=== PATIENT | female | born 1970 | race Caucasian/White ===

== ENCOUNTER 2018-03-12 18:57 | Observation (INO) ==
[2018-03-12] MEDS ORDERED: Aspirin 81 MG TAB.CHEW PO STA (19:04)
--- NOTE | 2018-03-12 19:07 | Emergency Department Note ---
Disposition Clinical Impression: Chest pain Qualifiers: Chest pain type: unspecified Qualified Code(s): R07.9 - Chest pain, unspecified Disposition: Admitted As Inpatient Condition: Fair Referrals: Barber Knowles, ZAHRA [Primary Care Provider] - Forms: ED Satisfaction Letter Time of Disposition: 19:07 Chest Pain HPI - General Chief Complaint: ED Chest Pain Stated Complaint: "chest pain" Time Seen by Provider: 03/12/18 18:59 Source: patient, EMS Mode of arrival: EMS Limitations: no limitations Vital Signs Reviewed: Yes Nursing Notes Reviewed: Yes - History of Present Illness HPI Narrative: 47-year-old female no previous cardiac history comes in complaining of chest pain. States she was seen at outside facility had a CTA of the chest and cardiac enzymes were negative she was sent out they did not have a stress test. Patient does have risk factors of hypertension, diabetes, family history. Patient has not had a stress test in several years. Pt complaint: chest pain Onset (ago): day(s) Duration: intermittent Onset: during rest Pain Location: substernal, left chest Severity: moderate Quality: tightness, aching, heaviness Pain Radiation: none Improves with: nothing Worsens with: nothing Treatments prior to arrival chest pain: none - Related Data Home Medications Medication Instructions Recorded Confirmed Allopurinol [Zyloprim 300 MG] 300 mg PO DAILY 06/01/15 03/04/18 Gabapentin [Neurontin] 300 mg PO TID 06/01/15 03/04/18 Levothyroxine [Synthroid] 12.5 mcg PO DAILY 06/01/15 03/04/18 ClonazePAM [Klonopin] 1 mg PO TID 07/27/15 03/04/18 FLUoxetine HCl [Prozac] 80 mg PO DAILY 07/27/15 03/04/18 Fluticasone Propionate Nasal 1 spray NS DAILY 07/27/15 03/04/18 [Flonase] Gemfibrozil [Lopid] 600 mg PO BID 07/27/15 03/04/18 Doxepin [Sinequan] 100 mg PO HS 06/04/16 03/04/18 Ergocalciferol (VITAMIN D2) 50,000 unit PO QWEEK 06/06/16 03/04/18 [Vitamin D2 (50,000 UNIT)] Ferrous Sulfate 325 mg PO DAILY 06/06/16 03/04/18 Insulin Glargine,Hum.rec.anlog 58 unit SQ HS 12/01/16 03/04/18 [Lantus Solostar] HumaLOG 1 unit SQ TID 06/01/17 03/04/18 Tradjenta 1 tab PO DAILY 06/01/17 03/04/18 Meclizine [Antivert] 25 mg PO BID 11/25/17 03/04/18 Pantoprazole Sodium [Protonix] 80 mg PO DAILY 11/25/17 03/04/18 Sulfamethoxazole/Trimeth DS 1 each PO BID 03/04/18 03/04/18 [Bactrim Ds] Allergies Allergy/AdvReac Type Severity Reaction Status Date / Time simvastatin Allergy Cramping Verified 03/12/18 17:26 of the Muscles All systems ED: reviewed and negative except as stated. Constitutional: Denies: fever, chills, weakness, weight change Eyes: Denies: eye pain, eye discharge, vision change ENT ED: Denies: ear pain, throat pain, dental pain, hearing loss, epistaxis, congestion, dysphagia Cardiovascular: Reports: chest pain. Denies: palpitations, dyspnea on exertion , edema, syncope Respiratory: Denies: cough, dyspnea, wheezes, hemoptysis, stridor Gastrointestinal: Denies: abdominal pain, nausea, vomiting, diarrhea, constipation, hematemesis, melena, hematochezia Genitourinary: Denies: dysuria, frequency, hematuria, discharge Musculoskeletal: Denies: back pain, neck pain, arthralgia, myalgia Integumentary: Denies: rash, abrasion, lesions Neurological: Denies: headache, weakness, numbness, paresthesias, confusion, abnormal gait, vertigo Psychiatric: Denies: anxiety, depression, suicidal thoughts, homicidal thoughts , auditory hallucinations, visual hallucinations Endocrine: Denies: fatigue Hematological/Lymphatic: Denies: easy bleeding, easy bruising Allergic/Immunologic: Denies: facial swelling, urticaria Chest Pain PMH - Past Medical History Medical history: Reports: arthritis, diabetes, GERD, hyperlipidemia, hypertension, kidney stones, thyroid disease, other Surgical history: Reports: cholecystectomy, orthopedic, other, other Psychiatric history: Reports: anxiety, depression, panic disorder ER REGISTRAR history: Reports: no ER REGISTRAR history - Social History Smoking Status: Never smoker Alcohol use: Reports: none Drug use: Reports: none Physical Exam - General Limitations: no limitations General appearance: alert, in no apparent distress - Head Head exam: atraumatic, normocephalic, normal inspection - Eye Eye exam: Present: normal appearance, PERRL, EOMI - ENT ENT exam: normal exam, normal oropharynx, mucous membranes moist - Neck Neck exam: Present: normal inspection, full ROM, trachea midline - Chest Chest inspection: Present: normal inspection, symmetric chest wall rise - Respiratory Respiratory exam: Present: normal lung sounds bilaterally - Cardiovascular Cardiovascular exam: Present: regular rate, normal rhythm, normal heart sounds - Abdominal Exam Abdominal exam: Present: soft, Non-Tender. Absent: tenderness, distention, guarding, rebound, rigidity - Extremities Exam Extremities exam: Present: normal inspection, full ROM. Absent: tenderness, pedal edema - Expanded Lower Extremity Exam Neurovascular/Tendon exam: Absent: motor deficit, sensory deficit, tendon deficit - Back Exam Back exam: Present: normal inspection, full ROM. Absent: tenderness - Neurological Exam Neurological exam: Present: alert, oriented X3 - Skin Skin exam: Present: warm, dry, intact, normal color Course - Reevaluation(s) Reevaluation #1: 47-year-old with multiple risk factors comes in complaining of chest pain. Workup in the ER is negative patient will be admitted for further evaluation and testing. Patient was actually admitted the outside facility but had no formal stress testing or cardiac catheter. He A of the chest was negative for PE. Time: 21:29 - Consultations Consultation #1: Discussed with , admit. Time: 21:30 Vital Signs Pulse Rate 87 03/12/18 19:03 Respiratory Rate 16 03/12/18 19:03 Blood Pressure 138/73 03/12/18 19:03 O2 Sat by Pulse Oximetry 97 03/12/18 19:03 Pulse Rate 90 03/12/18 20:59 Respiratory Rate 18 03/12/18 20:59 Blood Pressure 142/83 03/12/18 20:59 O2 Sat by Pulse Oximetry 96 03/12/18 20:59 Oxygen Delivery Oxygen Delivery Room Air Chest Pain - Lab Data Result diagrams: 03/12/18 19:12 Lab Results 03/12/18 03/12/18 03/12/18 Range/Units 19:02 19:12 19:12 WBC 9.2 (4.3-11.1) K/mcL RBC 4.17 (3.82-4.97) M/mcL Hgb 11.3 L (11.5-15.4) g/dL Hct 34.9 L (35.3-44.9) % MCV 83.7 (83.0-100.0) fL MCH 27.1 L (28.0-33.3) pg MCHC 32.4 (31.6-35.5) g/dL RDW 14.8 H (11.5-14.5) % Plt Count 287 (140-400) K/mcL MPV 9.3 L (9.4-12.4) fL Immature Gran % 0.4 (0-4) % Seg Neutrophils % 69.2 % Lymphocytes % 22.4 % Monocytes % 5.1 % Eosinophils % 2.6 % Basophils % 0.3 % Neutrophils # 6.3 (1.6-8.9) K/mcL Lymphocytes # 2.1 (0.6-4.6) K/mcL Monocytes # 0.5 (0.0-1.3) K/mcL Eosinophils # 0.2 (0.0-0.6) K/mcL Basophils # 0.0 (0.0-0.2) K/mcL PT 11.1 (9.4-12.1) Seconds INR 1.0 APTT 35.8 (26.0-36.0) Seconds Troponin I < 0.03 (< 0.04) ng/mL Specimen Rejected 03/12/18 Range/Units 19:12 WBC (4.3-11.1) K/mcL RBC (3.82-4.97) M/mcL Hgb (11.5-15.4) g/dL Hct (35.3-44.9) % MCV (83.0-100.0) fL MCH (28.0-33.3) pg MCHC (31.6-35.5) g/dL RDW (11.5-14.5) % Plt Count (140-400) K/mcL MPV (9.4-12.4) fL Immature Gran % (0-4) % Seg Neutrophils % % Lymphocytes % % Monocytes % % Eosinophils % % Basophils % % Neutrophils # (1.6-8.9) K/mcL Lymphocytes # (0.6-4.6) K/mcL Monocytes # (0.0-1.3) K/mcL Eosinophils # (0.0-0.6) K/mcL Basophils # (0.0-0.2) K/mcL PT (9.4-12.1) Seconds INR APTT (26.0-36.0) Seconds Troponin I (< 0.04) ng/mL Specimen Rejected Hemolyzed - EKG Data EKG attestation: Yes I reviewed and interpreted this EKG. EKG shows normal: sinus rhythm Rate: normal Rhythm: NSR Wells/QRS: IVCD Interpretation: no acute changes Heart Score - Score History: Moderately Suspicious EKG: Normal Age: 45-65 Risk Factors: Equal/Greater than 3 risk factor or history of atherosclerotic disease Troponin: Less than normal limit HEART Score Total: 4
[2018-03-12 20:18] LABS: Basophils % 0.3 %; Eosinophils # 0.2 K/mcL (0.0-0.6); Eosinophils % 2.6 %; Hematocrit 34.9 % (35.3-44.9); Hemoglobin 11.3 g/dL (11.5-15.4); Immature Granulocytes % 0.4 % (0-4); Lymphocytes # 2.1 K/mcL (0.6-4.6); Lymphocytes % 22.4 %; Mean Corpuscular HGB Conc 32.4 g/dL (31.6-35.5); Mean Corpuscular Hemoglobin 27.1 pg (28.0-33.3); Mean Corpuscular Volume 83.7 fL (83.0-100.0); Mean Platelet Volume 9.3 fL (9.4-12.4); Monocytes # 0.5 K/mcL (0.0-1.3); Monocytes % 5.1 %; Neutrophils # 6.3 K/mcL (1.6-8.9); Platelet Count 287 K/mcL (140-400); Red Blood Count 4.17 M/mcL (3.82-4.97); Red Cell Distribution Width 14.8 % (11.5-14.5); Segmented Neutrophils % 69.2 %
[2018-03-12 20:23] LABS: Prothrombin Time 11.1 Seconds (9.4-12.1)
[2018-03-12 20:26] LABS: Activated Partial Thrombo Time 35.8 Seconds (26.0-36.0)
[2018-03-12] MEDS ORDERED: Naloxone 0.4 MG/ML INJ IVP PRN (23:46)
--- NOTE | 2018-03-13 00:45 | Internal Med History&Physical ---
Date of Encounter: 03/13/18 Time of Encounter: 00:15 Internal Medicine - H&P: HPI Chief complaint: Chest pain Admitted From: Emergency Dept Plans for Post Hospital Care: Home History of present illness: Ms. Herron is a 47 year old female patient with a history of essential hypertension, diabetes, chronic kidney disease and kidney stones presented to the ER with complaints of chest pain. Symptoms have been going on for about a week. Reports pain as being sharp and stabbing in nature and radiating across her left chest and up to her shoulder and down her arm. Gets worse with activity. She was evaluated at [facility] and was discharged home after being observed. She did not have any stress test done then. She had a stress test done in 2014 which was negative. She reports shortness of breath when the pain is very severe. She has so far not obtain any significant relief in her chest pain although it is more bearable when she is lying down. No prior history of coronary artery disease. Past Med Surg Social Fam HX - Past Medical History Attestation: Yes The following information was validated with the patient. Source: patient Medical history: arthritis, diabetes, GERD, hyperlipidemia, hypertension, kidney stones, thyroid disease, other Additional medical history: stage 3 kidney disease Psychiatric history: anxiety, depression, panic disorder - Past Surgical History Surgical History: cholecystectomy, orthopedic, other, other Additional surgical history: right ankle - Social History Smoking Status: Never smoker Smokeless Tobacco Status: No Alcohol use: none Drug use: none - Family History Father Adopted: No Family Member Ethnicity: Non- Living Status: Age at : 62 Cause of : CA Hx Family Cardiac Disorders: Yes (CA) Hx Family Respiratory Disorders: Yes (COPD) Hx Family Cancer: No Hx Family GI Disorders: Yes Hx Family Genitourinary Disorders: No Hx Family Endocrine Disorder: Yes (DM) Hx Family Musculoskeletal Disorders: No Hx Family Neuromuscular Disorders: No Hx Family Neurologic Disorders: No Hx Family HEENT Disorders: No Hx Family Autoimmune Disorders: No Hx Family Reproductive Disorders: No Hx Family Psychosocial Disorders: No Hx Family Medical Disorders: No Mother Hx Family Cardiac Disorders: (HTN) Hx Family Respiratory Disorders: Yes (COPD) Hx Family Cancer: Yes (Cervical) Hx Family GI Disorders: No Hx Family Genitourinary Disorders: No Hx Family Endocrine Disorder: Yes (Thyroid) Hx Family Musculoskeletal Disorders: No Hx Family Neurologic Disorders: Yes (Dementia) Hx Family HEENT Disorders: No Hx Family Autoimmune Disorders: No Hx Family Reproductive Disorders: No Hx Family Psychosocial Disorders: No Hx Family Medical Disorders: No Internal Medicine - H&P: Meds Allopurinol [Zyloprim] 300 mg PO DAILY 03/12/18 [History] Doxepin HCl 100 mg PO HS 03/12/18 [History] Ergocalciferol (VITAMIN D2) [Vitamin D2] 50,000 unit PO QWEEK 03/12/18 [History] FLUoxetine HCl [Prozac] 80 mg PO DAILY 03/12/18 [History] Ferrous Sulfate [Iron] 325 mg PO DAILY 03/12/18 [History] Gabapentin [Neurontin] 300 mg PO TID 03/12/18 [History] Gemfibrozil [Lopid] 600 mg PO BID 03/12/18 [History] Insulin Glargine,Hum.rec.anlog [Lantus Solostar] 64 unit SQ HS 03/12/18 [History ] Insulin LISPRO [HumaLOG] 0 units SQ TID PRN 03/12/18 [History] Levothyroxine Sodium [Levoxyl] 12.5 mcg PO DAILY 03/12/18 [History] Linagliptin [Tradjenta] 5 mg PO DAILY 03/12/18 [History] Meclizine HCl [Verticalm] 25 mg PO BID 03/12/18 [History] Pantoprazole Sodium [Protonix] 80 mg PO DAILY 03/12/18 [History] clonazePAM [Klonopin] 1 mg PO TID 03/12/18 [History] 3 Allergy/AdvReac Type Severity Reaction Status Date / Time simvastatin Allergy Cramping Verified 03/12/18 17:26 of the Muscles All Systems PM: A 10-system review of systems was performed and is negative for pertinent findings except as documented above in the HPI. - Constitutional Constitutional: no chills, no fever(s), no night sweats - EENT Eyes: no change in vision, no discharge, no pain, no photophobia Ears: no ear discharge, no ear pain, no tinnitus Nose, mouth and throat: no dysphagia, no nasal discharge, no neck pain, no sore throat - Cardiovascular Cardiovascular ROS IM: chest pain, dyspnea, no diaphoresis, no lightheadedness, no palpitations, no syncope - Respiratory Respiratory: no cough, no dyspnea, no wheezing, no excessive phlegm production - Gastrointestinal Gastrointestinal: no abdominal pain, no diarrhea, no hematemesis, no hematochezia, no melena, no nausea, no vomiting - Genitourinary Genitourinary: no change in urinary stream, no dysuria, no flank pain, no hematuria - Musculoskeletal Musculoskeletal ROS IM: no numbness, no tingling - Integumentary Integumentary IM: no rash, no unusual bruising - Neurological Neurological ROS: no confusion, no convulsions, no focal weakness, no numbness, no tingling, no tremor(s) - Hematologic/Lymphatic Hematologic/Lymphatic: no easy bruising - Constitutional Vitals: Temp Pulse Resp BP Pulse Ox 98.3 F 80 16 132/88 97 03/12/18 18:59 03/12/18 21:59 03/12/18 23:52 03/12/18 23:52 03/12/18 21:59 General appearance: Present: cooperative, mild distress, A&O X 3, morbidly obese , pleasant - Respiratory Respiratory exam: Present: CTAB. Absent: accessory muscle use, rales, rhonchi, wheezes - Cardiovascular Cardiovascular exam: Present: RRR, +S1, +S2. Absent: diastolic murmur, gallop, rubs, systolic murmur - GI/Abdominal GI/Abdominal exam: Present: normal bowel sounds, soft, no peritoneal signs. Absent: distended, tenderness - Extremities Exam Extremities exam: Present: warm, radial pulses palpable and symmetrical. Absent : calf tenderness, cyanotic, pedal edema - Neurological Exam Neurological exam: Present: CN II-XII intact, oriented X3, no focal deficits. Absent: facial droop, speech deficit - Skin Skin exam: Present: dry, intact Internal Med - H&P Results - Labs CBC & Chem 7: 03/12/18 19:12 - EKG Data -: EKG Interpreted by Myself EKG shows normal: sinus rhythm - Impressions Impressions Chest X-Ray 03/12/18 19:02 IMPRESSION: No acute process. D/ / Jon Dodson MD / Jon Dodson MD Interpreting Provider: Jon Dodson MD - Assessment and plan (1) Chest pain Current Visit: Yes Status: Acute Assessment and plan: Chest pain getting worse with exertion. Will place patient in hospital for observation. Trend troponins. Telemetry. Monitor vital signs. If troponins are negative, will order stress test as patient has multiple risk factors and is at intermediate risk for coronary artery disease Qualifiers: Chest pain type: precordial pain Qualified Code(s): R07.9 - Chest pain, unspecified (2) CKD (chronic kidney disease) stage 3, GFR 30-59 ml/min Current Visit: Yes Status: Chronic Assessment and plan: Will check basic panel. Blood work done yesterday showed creatinine of 1.44. (3) Diabetes mellitus type 2 in obese Current Visit: Yes Status: Chronic Assessment and plan: Will place patient on sliding scale insulin. Monitor blood sugars. Diabetic diet (4) HLD (hyperlipidemia) Current Visit: Yes Status: Chronic Assessment and plan: Continue Lopid Qualifiers: Hyperlipidemia type: mixed hyperlipidemia Qualified Code(s): E78.2 - Mixed hyperlipidemia (5) HTN (hypertension) Current Visit: Yes Status: Chronic Assessment and plan: Continue home medications. Monitor blood pressure closely. Qualifiers: Hypertension type: essential hypertension Qualified Code(s): I10 - Essential (primary) hypertension (6) Hypothyroid Current Visit: Yes Status: Chronic Assessment and plan: Continue Synthroid Qualifiers: Hypothyroidism type: other Qualified Code(s): E03.8 - Other specified hypothyroidism - Time Spent With Patient Total time spent is greater than 50% in coordination of care (as documented) at patient's floor/unit and/or counseling patient:
[2018-03-13] MEDS ORDERED: *HR* Dextrose 50 % in Water (Syg) 50 ML SYRINGE IVP PRN (01:02)
[2018-03-13] MEDS ORDERED: D5% in Water 1,000 ML IVC PRN (01:02)
[2018-03-13] MEDS ORDERED: Dextrose Gel 15 GM/37.5 ML TUBE PO PRN ×2 (01:02)
[2018-03-13] MEDS: *HR* HYDROcodone/Acet 5/325 mg TABLET PO PRN ×2 (01:27→17:48)
[2018-03-13] MEDS: Insulin LISPRO 300 UNITS/3 ML VIAL SQ SCH ×4 (06:00→20:59)
[2018-03-13] MEDS: Levothyroxine 25 MCG TABLET PO SCH (06:02)
[2018-03-13] MEDS ORDERED: Regadenoson 0.4 MG/5 ML SYRINGE IVP ONE ×2 (06:44→11:04)
[2018-03-13] MEDS: Gabapentin 300 MG CAPSULE PO SCH ×3 (12:55→21:13)
[2018-03-13] MEDS: clonazePAM 1 MG TABLET PO SCH ×3 (12:55→21:13)
[2018-03-13] MEDS: FLUoxetine 20 MG CAPSULE PO SCH (12:55)
--- NOTE | 2018-03-13 15:34 | Internal Med Progress Note ---
Date of Encounter: 03/13/18 Time of Encounter: 15:32 - Assessment and plan (1) Chest pain Current Visit: Yes Status: Acute Assessment and plan: presented with chest pain that was worse with exertion. No known CAD. Serial troponins negative, EKG without acute ST changes. Has multiple cardiac risk factors including super morbid obesity, hypertension and diabetes. Echocardiogram and stress test pending (patient will be a 2 day stress; second part of stress test will be completed on Thursday03/13/18). Cont ASA and monitor on telemetry. Qualifiers: Chest pain type: precordial pain Qualified Code(s): R07.9 - Chest pain, unspecified (2) Diabetes mellitus type 2 in obese Current Visit: Yes Status: Chronic Assessment and plan: per hx. holding home diabetes medication regimen. Continue SSI. Monitor blood sugar and titrate PRN. Hgb A1c pending (3) HLD (hyperlipidemia) Current Visit: Yes Status: Chronic Assessment and plan: per hx. LDL 123. Cont home lopid. Lifestyle and dietary modifications encouraged Qualifiers: Hyperlipidemia type: mixed hyperlipidemia Qualified Code(s): E78.2 - Mixed hyperlipidemia (4) HTN (hypertension) Current Visit: Yes Status: Chronic Assessment and plan: per hx. Cont home BP medication. Monitor BP and titrate PRN. BP controlled on review Qualifiers: Hypertension type: essential hypertension Qualified Code(s): I10 - Essential (primary) hypertension (5) Hypothyroid Current Visit: Yes Status: Chronic Assessment and plan: per hx. Cont home synthyroid Qualifiers: Hypothyroidism type: other Qualified Code(s): E03.8 - Other specified hypothyroidism (6) CKD (chronic kidney disease) stage 3, GFR 30-59 ml/min Current Visit: Yes Status: Chronic Assessment and plan: per hx. Monitor BMP (7) DVT prophylaxis Current Visit: Yes Status: Acute Assessment and plan: heparin - Time Spent With Patient Total time spent is greater than 50% in coordination of care (as documented) at patient's floor/unit and/or counseling patient: - Subjective Interval history: Seen and examined at bedside. Patient is new to me, information obtained from chart review and patient report. Says she feels overall better but she still having intermittent chest pain that radiates to her left shoulder and down her left arm. Also reports some shortness of breath. No cough, no fever or chills. - Constitutional Vitals: Temp Pulse Resp BP Pulse Ox 98.1 F 94 16 138/82 95 03/13/18 13:01 03/13/18 13:01 03/13/18 13:01 03/13/18 13:01 03/13/18 13:01 General appearance: Present: cooperative, A&O X 3, morbidly obese, pleasant - Head Head exam: Present: atraumatic, normocephalic - Eye Eye exam: Present: PERRL, conjuntiva pink, sclera anicteric Pupils: Present: PERRL - Neck Neck exam general surgery: Present: supple, trachea midline. Absent: lymphadenopathy - Respiratory Respiratory exam: Present: CTAB. Absent: accessory muscle use, rales, rhonchi, wheezes - Cardiovascular Cardiovascular exam: Present: RRR, +S1, +S2. Absent: diastolic murmur, gallop, rubs, systolic murmur - GI/Abdominal GI/Abdominal exam: Present: normal bowel sounds, soft, no peritoneal signs. Absent: distended, tenderness - Extremities Exam Extremities exam: Present: warm, radial pulses palpable and symmetrical. Absent : calf tenderness, cyanotic, pedal edema - Neurological Exam Neurological exam: Present: CN II-XII intact, oriented X3, no focal deficits. Absent: pronater drift, facial droop, speech deficit - Skin Skin exam: Present: dry, intact, rash (Psoriatic skin plaques) Internal Medicine: Result - Labs CBC & Chem 7: 03/12/18 19:12 Labs: Cardiac Enzymes 03/13/18 03/13/18 Range/Units 00:45 06:14 Troponin I < 0.03 < 0.03 (< 0.04) ng/mL - ABG Interpretation ABG results: PT/INR, D-dimer PT 11.1 Seconds (9.4-12.1) 03/12/18 19:02 Consult Discharge Plan - Plan Referrals: Barber Knowles, [employer] MECH[employer]IC [Primary Care Provider] - (Unable to make follow up appointment due to office being closed. Please call office thursday to schedule appointment. )
[2018-03-13] MEDS: Aspirin 81 MG TAB.CHEW PO SCH (17:46)
[2018-03-13] MEDS: Nitroglycerin 0.4 MG TAB.SUBL SL PRN ×2 (20:43→20:58)
[2018-03-13] MEDS ORDERED: Ketorolac 30 MG/ML VIAL IVP ONE (21:12)
[2018-03-13] MEDS: Sulfamethoxazole/Trimeth DS 1 EACH TABLET PO SCH (21:49)
[2018-03-14] MEDS: Levothyroxine 25 MCG TABLET PO SCH (05:16)
[2018-03-14 06:13] LABS: Calcium 8.8 mg/dL (8.6-10.3); Potassium 4.4 mEq/L (3.5-5.1)
[2018-03-14] MEDS: FLUoxetine 20 MG CAPSULE PO SCH (09:15)
[2018-03-14] MEDS: Gabapentin 300 MG CAPSULE PO SCH ×3 (09:15→20:53)
[2018-03-14] MEDS: *HR* HYDROcodone/Acet 5/325 mg TABLET PO PRN (09:15)
[2018-03-14] MEDS: Aspirin 81 MG TAB.CHEW PO SCH (09:16)
[2018-03-14] MEDS: Insulin LISPRO 300 UNITS/3 ML VIAL SQ SCH ×4 (09:16→20:52)
[2018-03-14] MEDS: Sulfamethoxazole/Trimeth DS 1 EACH TABLET PO SCH ×2 (09:16→20:53)
[2018-03-14] MEDS: clonazePAM 1 MG TABLET PO SCH ×3 (09:16→20:53)
[2018-03-14 09:18] LABS: Estimated Average Glucose 237 mg/dl; Hemoglobin A1C 9.9 %
--- NOTE | 2018-03-14 11:26 | Internal Med Progress Note ---
Date of Encounter: 03/14/18 Time of Encounter: 11:39 - Assessment and plan (1) Chest pain Current Visit: Yes Status: Acute Assessment and plan: presented with chest pain that was worse with exertion. No known CAD. Serial troponins negative, EKG without acute ST changes. Has multiple cardiac risk factors including super morbid obesity, hypertension and diabetes. Echocardiogram and stress test pending (2 day stress; second part of stress test will be completed on Thursday03/13/18). Cont ASA and monitor on telemetry. Qualifiers: Chest pain type: precordial pain Qualified Code(s): R07.9 - Chest pain, unspecified (2) Diabetes mellitus type 2 in obese Current Visit: Yes Status: Chronic Assessment and plan: per hx. Uncontrolled; Hgb A1c 9.9%. Holding home diabetes medication regimen. Continue SSI. Monitor blood sugar and titrate PRN. (3) HLD (hyperlipidemia) Current Visit: Yes Status: Chronic Assessment and plan: per hx. LDL 123. Cont home lopid. Lifestyle and dietary modifications encouraged Qualifiers: Hyperlipidemia type: mixed hyperlipidemia Qualified Code(s): E78.2 - Mixed hyperlipidemia (4) HTN (hypertension) Current Visit: Yes Status: Chronic Assessment and plan: per hx. Cont home BP medication. Monitor BP and titrate PRN. BP controlled on review Qualifiers: Hypertension type: essential hypertension Qualified Code(s): I10 - Essential (primary) hypertension (5) Hypothyroid Current Visit: Yes Status: Chronic Assessment and plan: per hx. Cont home synthyroid Qualifiers: Hypothyroidism type: other Qualified Code(s): E03.8 - Other specified hypothyroidism (6) CKD (chronic kidney disease) stage 3, GFR 30-59 ml/min Current Visit: Yes Status: Chronic Assessment and plan: per hx. Monitor BMP (7) DVT prophylaxis Current Visit: Yes Status: Acute Assessment and plan: heparin - Time Spent With Patient Total time spent is greater than 50% in coordination of care (as documented) at patient's floor/unit and/or counseling patient: - Subjective Interval history: Seen and examined at bedside. Seen and examined at bedside. Uneventful night. No changes in exam to report. Says she still having intermittent chest pain and shortness of breath that is worse with exertion. No active chest pain on my exam. - Constitutional Vitals: Temp Pulse Resp BP Pulse Ox 98.2 F 99 14 130/71 96 03/14/18 11:03 03/14/18 11:03 03/14/18 11:03 03/14/18 11:03 03/14/18 11:03 General appearance: Present: cooperative, A&O X 3, morbidly obese, pleasant - Head Head exam: Present: atraumatic, normocephalic - Eye Eye exam: Present: PERRL, conjuntiva pink, sclera anicteric Pupils: Present: PERRL - Neck Neck exam general surgery: Present: supple, trachea midline. Absent: lymphadenopathy - Respiratory Respiratory exam: Present: CTAB. Absent: accessory muscle use, rales, rhonchi, wheezes - Cardiovascular Cardiovascular exam: Present: RRR, +S1, +S2. Absent: diastolic murmur, gallop, rubs, systolic murmur - GI/Abdominal GI/Abdominal exam: Present: normal bowel sounds, soft, no peritoneal signs. Absent: distended, tenderness - Extremities Exam Extremities exam: Present: warm, radial pulses palpable and symmetrical. Absent : calf tenderness, cyanotic, pedal edema - Neurological Exam Neurological exam: Present: CN II-XII intact, oriented X3, no focal deficits. Absent: pronater drift, facial droop, speech deficit - Skin Skin exam: Present: dry, intact Internal Medicine: Result - Labs CBC & Chem 7: 03/12/18 19:12 03/14/18 04:55 Labs: BMP 03/14/18 04:55 Sodium 134 L Potassium 4.4 Chloride 102 Carbon Dioxide 24 BUN 18 Creatinine 1.21 H Glucose 230 H Calcium 8.8 - ABG Interpretation ABG results: PT/INR, D-dimer PT 11.1 Seconds (9.4-12.1) 03/12/18 19:02 Consult Discharge Plan - Plan Referrals: Barber Knowles, [employer]OLOGIST [Primary Care Provider] - (Unable to make follow up appointment due to office being closed. Please call office thursday to schedule appointment. )
[2018-03-14] MEDS: *HR* Heparin 5,000 UNIT/ML VIAL SQ SCH ×2 (14:11→20:53)
[2018-03-15] MEDS: *HR* Heparin 5,000 UNIT/ML VIAL SQ SCH (05:26)
[2018-03-15] MEDS: Levothyroxine 25 MCG TABLET PO SCH (05:26)
[2018-03-15 06:38] LABS: Hematocrit 36.2 % (35.3-44.9); Hemoglobin 11.3 g/dL (11.5-15.4); Mean Corpuscular HGB Conc 31.2 g/dL (31.6-35.5); Mean Corpuscular Hemoglobin 25.8 pg (28.0-33.3); Mean Corpuscular Volume 82.6 fL (83.0-100.0); Mean Platelet Volume 9.2 fL (9.4-12.4); Platelet Count 295 K/mcL (140-400); Red Blood Count 4.38 M/mcL (3.82-4.97); Red Cell Distribution Width 14.7 % (11.5-14.5)
[2018-03-15 07:10] LABS: Calcium 9.3 mg/dL (8.6-10.3); Potassium 4.3 mEq/L (3.5-5.1)
[2018-03-15] MEDS: Sulfamethoxazole/Trimeth DS 1 EACH TABLET PO SCH (09:32)
[2018-03-15] MEDS: Gabapentin 300 MG CAPSULE PO SCH (09:32)
[2018-03-15] MEDS: clonazePAM 1 MG TABLET PO SCH (09:32)
[2018-03-15] MEDS: Aspirin 81 MG TAB.CHEW PO SCH (09:32)
[2018-03-15] MEDS: FLUoxetine 20 MG CAPSULE PO SCH (09:32)
[2018-03-15] MEDS: Insulin LISPRO 300 UNITS/3 ML VIAL SQ SCH ×2 (09:35→12:47)
[2018-03-15] MEDS ORDERED: 0.9 % Sodium Chloride 1,000 ML IVC SCH (10:15)
[2018-03-15 11:33] VITALS: BP 133/74
--- NOTE | 2018-03-15 13:30 | Discharge Summary ---
- NOTES TO OUTPATIENT PROVIDER Notes to Outpatient Provider: Recommend follow-up within one week Orders not resulted at time of discharge: Pending orders 03/13/18 01:01 NM pj perf SPECT multi [NM] Routine Date of Encounter: 03/15/18 Time of Encounter: 13:26 - Discharge Diagnosis (1) Chest pain Priority: Primary Status: Acute Assessment and Plan: presented with chest pain that was worse with exertion. No known CAD. Serial troponins negative, EKG without acute ST changes. Has multiple cardiac risk factors including super morbid obesity, hypertension and diabetes. TTE with preserved EF, mild diastolic dysfunction, no significant valvular or wall motion abnormalities. Stress test negative for ischemia or infarct. No further cardiac workup indicated at this time. Advised on aggressive risk factor modification. Continue ASA Qualifiers: Chest pain type: precordial pain Qualified Code(s): R07.9 - Chest pain, unspecified (2) Diabetes mellitus type 2 in obese Priority: Primary Status: Chronic Assessment and Plan: per hx. Uncontrolled; Hgb A1c 9.9%. Cont home diabetes medication regimen. Educated on dietary and lifestyle modifications (3) HLD (hyperlipidemia) Priority: Primary Status: Chronic Assessment and Plan: per hx. LDL 123. Cont home lopid. Lifestyle and dietary modifications encouraged Qualifiers: Hyperlipidemia type: mixed hyperlipidemia Qualified Code(s): E78.2 - Mixed hyperlipidemia (4) HTN (hypertension) Priority: Primary Status: Chronic Assessment and Plan: per hx. Cont home BP medication. Qualifiers: Hypertension type: essential hypertension Qualified Code(s): I10 - Essential (primary) hypertension (5) Hypothyroid Priority: Primary Status: Chronic Assessment and Plan: per hx. Cont home synthyroid Qualifiers: Hypothyroidism type: other Qualified Code(s): E03.8 - Other specified hypothyroidism (6) CKD (chronic kidney disease) stage 3, GFR 30-59 ml/min Priority: Primary Status: Chronic Assessment and Plan: per hx. Renal function at baseline Hospital course: Ms. Herron is a 47 year old female with PMH morbid obesity, hypertension, diabetes , hypothyroidism and hyperlipidemia presented to [facility] on 03/13/2018 with complaints chest pain. She was placed in observation status for further workup and treatment. Her workup included negative serial troponins , EKG without acute ST changes. She underwent a stress test which was negative for ischemia or infarct. An echocardiogram revealed preserved EF with mild diastolic dysfunction. No valvular abnormalities no wall motion abnormalities. Chest pain resolved with Lidoderm patch. Suspect musculoskeletal. No further cardiac workup was indicated at this time. Return to baseline and requested discharge home. She was advised on aggressive risk factor modification including dietary and lifestyle modifications. Discharge discussed with: patient (Seen and examined at [facility]. Says she feels better, denies chest pain or shortness of breath. Says she would like to go home if her stress test is negative. Advised on weight management tighter diabetes control.) - Time Spent with Patient Total time spent providing and/or coordinating discharge services: - Discharge Medications Prescriptions: Aspirin 81 mg PO DAILY #30 tab.chew Home Medications: Allopurinol [Zyloprim] 300 mg PO DAILY 03/12/18 [History] Doxepin HCl 100 mg PO HS 03/12/18 [History] Ergocalciferol (VITAMIN D2) [Vitamin D2] 50,000 unit PO QWEEK 03/12/18 [History] FLUoxetine HCl [Prozac] 80 mg PO DAILY 03/12/18 [History] Ferrous Sulfate [Iron] 325 mg PO DAILY 03/12/18 [History] Gabapentin [Neurontin] 300 mg PO TID 03/12/18 [History] Gemfibrozil [Lopid] 600 mg PO BID 03/12/18 [History] Insulin Glargine,Hum.rec.anlog [Lantus Solostar] 64 unit SQ HS 03/12/18 [History ] Insulin LISPRO [HumaLOG] 0 units SQ TID PRN 03/12/18 [History] Levothyroxine Sodium [Levoxyl] 12.5 mcg PO DAILY 03/12/18 [History] Linagliptin [Tradjenta] 5 mg PO DAILY 03/12/18 [History] Meclizine HCl [Verticalm] 25 mg PO BID 03/12/18 [History] Pantoprazole Sodium [Protonix] 80 mg PO DAILY 03/12/18 [History] clonazePAM [Klonopin] 1 mg PO TID 03/12/18 [History] Aspirin 81 mg PO DAILY #30 tab.chew 03/15/18 [Rx] Allergies/Adverse Reactions: 3 Allergy/AdvReac Type Severity Reaction Status Date / Time simvastatin Allergy Cramping Verified 03/12/18 17:26 of the Muscles Date of admission: 03/12/18 22:57 Primary care physician: Barber Knowles CNP Discharging clinician: Juanita Chew Anticipated date of discharge: 03/15/18 - Constitutional Vitals: Temp Pulse Resp BP Pulse Ox 97.8 F 96 14 133/74 92 03/15/18 11:32 03/15/18 11:32 03/15/18 11:32 03/15/18 11:32 03/15/18 11:32 General appearance: Present: cooperative, A&O X 3, morbidly obese, pleasant - Head Head exam: Present: atraumatic, normocephalic - Eye Eye exam: Present: PERRL, conjuntiva pink, sclera anicteric Pupils: Present: PERRL - Neck Neck exam general surgery: Present: supple, trachea midline. Absent: lymphadenopathy - Respiratory Respiratory exam: Present: CTAB. Absent: accessory muscle use, rales, rhonchi, wheezes - Cardiovascular Cardiovascular exam: Present: RRR, +S1, +S2. Absent: diastolic murmur, gallop, rubs, systolic murmur - GI/Abdominal GI/Abdominal exam: Present: normal bowel sounds, soft, no peritoneal signs. Absent: distended, tenderness - Extremities Exam Extremities exam: Present: warm, radial pulses palpable and symmetrical. Absent : calf tenderness, cyanotic, pedal edema - Neurological Exam Neurological exam: Present: CN II-XII intact, oriented X3, no focal deficits. Absent: pronater drift, facial droop, speech deficit - Skin Skin exam: Present: dry, intact - Patient Status Disposition: Home, Self-Care Condition: Good Functional capacity at discharge: independent ambulation Overall status at discharge: patient is back to baseline - Discharge Instructions Instructions: Aspirin (By mouth), Weight Management (DC), Obesity (DC), Meal Planning with Diabetes Exchanges (DC) Follow Up With: Barber Knowles CNP [Primary Care Provider] - (Please follow-up within 1 week. ) - Diet and Activity Activity: increase activity as tolerated Diet: diabetic diet, low fat, low cholesterol
--- NOTE | 2018-03-15 17:34 | Electrocardiograph Report ---
[place] [id number] Test Date: 2018-03-14 Pat Name: Bettye Herron Department: 113 Room: 3B23 Gender: F [employer]: : 1970 Requested By: Juanita Chew Order Number: [id number] Reading MD: Aminata Dudley Measurements Intervals [place] Rate: 91 P: 152 AK: 177 QRS: 140 QRSD: 108 T: 137 QT: 360 QTc: 408 Interpretive Statements SINUS RHYTHM ARM LEADS REVERSED ATYPICAL ECG Electronically Signed On 03-15-2018 17:33:05 EDT by Aminata Dudley
== END 2018-03-15 15:18 | disposition home or self-care (01) ==
LOC: 3BNU 18:57 → EMEROO 18:57 → 3BNU 03-13
PROVIDERS: ADMIT Internal Medicine; ATTEND Internal Medicine